=== PATIENT | female | born 1985 | race Caucasian/White ===

== ENCOUNTER 2016-11-25 14:59 | Emergency (ER) | payer OTHER ==
[~2016-11-25] VITALS: Ht 170.2 cm; Wt 72.7 kg
[2016-11-25] MEDS ORDERED: [UNRECOGNIZED DRUG - OTHER] PO (15:15)
[2016-11-25] MEDS ORDERED: CLOZARIL100 M1 PO (15:16)
[2016-11-25] MEDS ORDERED: LITHOBID300 M1 PO (15:16)
[2016-11-25 15:36] LABS: HCT-HEMATOCRIT 39.5 % (34.0-49.0); IMMATURE GRANULOCYTES ABSOLUTE 0.01 tho/cmm (0-0.03); IMMATURE GRANULOCYTES PERCENT 0.1 % (0-0.3); LYMPH % 23.1 % (20-45); LYMPH ABSOLUTE COUNT 1.8 tho/cmm (0.8-4.5); MCHC MEAN CORPUSCULAR HGB CONC 35.4 % (32.0-36.0); MCV (MEAN CELL VOLUME) 84.8 fl (82.0-96.0); MEAN PLATELET VOLUME 9.6 cmc (9.4-12.4); MONO % 6.4 % (0-12); MONOCYTE ABSOLUTE COUNT 0.5 tho/cmm (0.0-1.2); NEUTROPHIL ABSOLUTE COUNT 5.4 tho/cmm (1.6-8.0); NEUTROPHIL-AUTOMATED 5.4 tho/cmm (1.6-8.0); NEUTROPHILS % 70.4 % (40-80); PLATELET COUNT 208 tho/cmm (150-450); RED BLOOD COUNT 4.66 mil/cmm (4.00-5.20); RED CELL DISTRIBUTION WIDTH 12.8 % (12.4-16.4); WHITE BLOOD COUNT 7.6 tho/cmm (4.0-10.0)
[2016-11-25 15:51] LABS: ALB/GLOB RATIO 1.2 (0.8-2.0); ALBUMIN 3.7 g/dl (3.5-5.0); ALKALINE PHOSPHATASE 81 U/L (33-138); ALT/SGPT 18 U/L (12-78); ANION GAP 11 mmol/L (0-20); AST/SGOT 15 U/L (10-40); BILIRUBIN,TOTAL 0.4 mg/dl (0-1.5); BLOOD UREA NITROGEN 6 mg/dl (6-24); CALCIUM 8.5 mg/dl (8.5-10.5); CARBON DIOXIDE-VENOUS 22 mmol/L (22-32); CHLORIDE 109 mmol/l (96-110); CREATININE 1.07 mg/dl (0.50-1.10); GLUCOSE 94 mg/dL (70-110); POTASSIUM 3.4 mmol/L (3.7-5.1); SODIUM 139 mmol/L (135-145); eGFR VALUE FOR BLACK 80 mL/Min
== END 2016-11-25 19:08 ==
LOC: EDMED → EDBD 14:59 → EDMED 14:59
PROVIDERS: Emergency Medicine
DX: R56.9 Unspecified convulsions (principal); F41.9 Anxiety disorder, unspecified; F42.9 Obsessive-compulsive disorder, unspecified; Z88.8 Allergy status to other drugs, medicaments and biological substances; Z79.899 Other long term (current) drug therapy
CPT/HCPCS: J7030